=== PATIENT | female | born 2000 | race Caucasian/White ===

== ENCOUNTER 2021-03-20 17:55 | Emergency (ER) | payer OTHER, SELFPAY ==
[2021-03-20] VITALS (7 sets, daily range): BP systolic 112–125; BP diastolic 63–77; PULSE 76–90; RESP 16; TEMP 36.9; O2SAT 98–100; BMI 18.0
--- NOTE | 2021-03-20 18:02 | ED.FALL ---
HPI - Fall General Chief Complaint: Dizziness Stated Complaint: vertigo, fall Time Seen by Provider: 03/20/21 17:57 Source: patient and EMS Mode of arrival: EMS Limitations: no limitations History of Present Illness HPI Narrative: 20-year-old female nonsmoker with history of vertigo presents by EMS and a chief complaint a sudden onset, seemingly unprovoked episode of vertigo which caused her to fall to the ground suffering a head and neck injury. She states that she does not have full recall and may have lost consciousness briefly. She quickly returned to her normal, has no blurred vision, ongoing dizziness, vomiting use of alcohol or blood thinners. She states that she had been in her normal state of health leading up to this and denies any obvious provocation such as change in position, standing up, recent vomiting, diarrhea, heavy menses, new medications or other. She denies any chest pain or shortness of breath nor any palpitations. She denies any history of blood clot, recent travel. She has had no fever or chills. She has left-sided head pain with palpation and pain to palpation of her cervical spine. MD complaint: fall Onset (ago): minute(s) Fall from: standing Fall witnessed: yes, by bystander Place fall occurred: work Loss of consciousness: unsure Length of LOC: second(s) Prolonged down time: no Symptoms prior to fall: dizziness Location of injury: head and neck Severity: moderate Associated symptoms (after fall): denies and neck pain Related Data Previous Rx's Medication Instructions Recorded meclizine 25 mg PO BID-TID PRN #14 tab 03/20/21 ondansetron 4 mg PO TID-QID PRN #10 tab 03/20/21 Allergies Allergy/AdvReac Type Severity Reaction Status Date / Time hydroxyzine Allergy Verified 03/20/21 21:23 Review of Systems Constitutional Constitutional: Denies chills, Denies fatigue, Denies fever(s), Denies frequent falls, Reports headache(s), Denies lethargy and Denies weakness Eyes Eyes: Denies change in vision, Denies eye discharge, Denies irritation and Denies loss of vision ENT Ears, Nose, Mouth, and Throat: Denies change in voice, Reports dizziness, Reports headache(s), Reports neck pain, Denies sore throat and Denies throat swelling Cardiovascular Cardiovascular: Denies chest pain, Denies irregular heart rhythm, Denies lightheadedness, Denies palpitations, Denies dyspnea, Denies dyspnea on exertion and Denies orthopnea Respiratory Respiratory: Denies cough, Denies dyspnea, Denies dyspnea on exertion and Denies wheezing Gastrointestinal Gastrointestinal: Denies abdominal pain, Denies change in bowel habits, Denies diarrhea, Denies nausea and Denies vomiting Musculoskeletal Musculoskeletal: Reports neck pain and Denies numbness Integumentary/Breasts Skin/Breast: Denies pruritus, Denies erythema, Denies rash and Denies wounds Neurologic Neurologic: Denies behavioral changes, Denies confusion, Reports dizziness, Denies frequent falls, Reports headache(s), Denies loss of vision, Denies numbness and Denies weakness Psychiatric Psychiatric: Denies anxiety, Denies behavioral changes, Denies confusion, Denies depression, Denies homicidal ideation and Denies suicidal ideation Endocrine Endocrine: Denies fatigue, Denies flushing and Denies palpitations Hematologic/Lymphatic Hematologic/Lymphatic: Denies easy bruising Allergic/Immunologic Allergic/Immunologic: Denies urticaria, Denies throat swelling and Denies wheezing Patient History Social History Smoking Status: Never smoker Smoking Status: Never smoker alcohol intake frequency: 0-2 drinks per day Substance Use Type: does not use Exam Narrative Exam Narrative: GENERAL: [20] year old patient appears stated age. Well-nourished, well-developed patient, in mild distress. GCS 15 HEAD: Mild tenderness to palpation on the left protestant, no significant swelling laceration or suggestion of depressed skull fracture EYES: Pupils equal round and reactive. Extraocular motions intact. No scleral icterus. No injection or drainage. ENT: Nose without bleeding, purulent drainage. Throat without erythema, tonsillar hypertrophy or exudate. Airway patent. NECK: Trachea midline. Tender in the midline lower cervical, no step-off CARDIOVASCULAR: Regular rate and rhythm without murmurs, gallops, or rubs. RESPIRATORY: Clear to auscultation. Breath sounds equal bilaterally. No wheezes, rales, or rhonchi. GASTROINTESTINAL: Abdomen soft, non-tender, nondistended. EXTREMITIES: No edema or joint tenderness. BACK: Nontender without deformity or crepitance. No flank tenderness. NEURO: AOx3. SKIN: No rash or erythema of visible areas Initial Vital Signs Initial Vital Signs: Vital Signs Pulse Rate 90 03/20/21 18:00 Blood Pressure 119/77 03/20/21 18:00 Pulse Oximetry 100 03/20/21 18:00 Course Orders Ordered: ED Orders 03/20/21 18:02 CT cervical spine wo con Stat CT head/brain wo con Stat 03/20/21 18:03 Complete Blood Count AUTO DIFF Stat EKG-12 Lead Stat 03/20/21 19:03 Comprehensive Metabolic Panel Stat D Dimer Stat Discontinued Medications Sodium Chloride (Normal Saline 0.9%) 1,000 mls @ 1,000 mls/hr IV BOLUS ONE Stop: 03/20/21 19:54 Last Infusion: 03/20/21 20:12 Dose: 0 mls/hr Documented by: Admin: 03/20/21 19:03 Dose: 1,000 mls/hr Documented by: PARISH Sodium Chloride (Normal Saline 0.9%) 1,000 mls @ 1,000 mls/hr IV BOLUS ONE Stop: 03/20/21 21:27 Last Infusion: 03/20/21 21:26 Dose: 0 mls/hr Documented by: Admin: 03/20/21 20:36 Dose: 1,000 mls/hr Documented by: MARTINEZ Meclizine HCl (Meclizine Hcl 12.5 Mg Tablet) 25 mg PO NOW ONE Stop: 03/20/21 18:57 Last Admin: 03/20/21 19:03 Dose: 25 mg Documented by: PARISH Ondansetron HCl (Ondansetron 4 Mg/2 Ml Inj) 4 mg IV NOW ONE Stop: 03/20/21 21:21 Last Admin: 03/20/21 21:26 Dose: 4 mg Documented by: MARTINEZ Vital Signs Vital signs: Vital Signs - 8 hr 03/20/21 18:00 03/20/21 18:02 03/20/21 19:00 Temperature 98.4 F Pulse Rate 90 88 Pulse Rate [Orthostatic Lying] Pulse Rate [Orthostatic Sitting] Pulse Rate [Orthostatic Standing] Respiratory Rate 16 Blood Pressure 119/77 119/77 112/63 Blood Pressure [Orthostatic Lying] Blood Pressure [Orthostatic Sitting] Blood Pressure [Orthostatic Standing] Pulse Oximetry 100 98 03/20/21 19:30 03/20/21 19:45 03/20/21 19:48 Temperature Pulse Rate 78 Pulse Rate [Orthostatic Lying] 78 Pulse Rate [Orthostatic Sitting] 81 Pulse Rate [Orthostatic Standing] 76 Respiratory Rate Blood Pressure 120/75 125/75 Blood Pressure [Orthostatic Lying] 120/75 Blood Pressure [Orthostatic Sitting] 125/75 Blood Pressure [Orthostatic Standing] 116/74 Pulse Oximetry 100 03/20/21 20:53 Temperature Pulse Rate 87 Pulse Rate [Orthostatic Lying] Pulse Rate [Orthostatic Sitting] Pulse Rate [Orthostatic Standing] Respiratory Rate 16 Blood Pressure 121/66 Blood Pressure [Orthostatic Lying] Blood Pressure [Orthostatic Sitting] Blood Pressure [Orthostatic Standing] Pulse Oximetry 100 MDM - Fall Lab Data Result diagrams: 03/20/21 18:03 03/20/21 19:03 Labs: Lab Results 03/20/21 03/20/21 03/20/21 Range/Units 18:03 19:03 19:03 WBC 6.8 (4.5-11.0) X10^3/uL RBC 4.36 (4.0-5.2) X10^6/uL Hgb 12.9 (12.0-16.0) g/dL Hct 38.9 (36-46) % MCV 89.3 (80-100) fL MCH 29.7 (26-34) PG MCHC 33.2 (30-36) % RDW 13.2 (11.6-14.8) % Plt Count 248 (150-400) X10^3/uL Neut % (Auto) 56.2 (50-75) % Lymph % (Auto) 33.9 (25-40) % [place] % (Auto) 7.6 (3-14) % Eos % (Auto) 1.7 L (2-4) % Baso % (Auto) 0.6 (0-2) % Neut # (Auto) 3800 (1031-3360) /uL Lymph # (Auto) 2300 (5465-0280) /uL [place] # (Auto) 500 (0-900) /uL Eos # (Auto) 100 (0-450) /uL Baso # (Auto) 0 (0-100) /uL D-Dimer < 200 (<230) ng/mL Sodium 138 (137-145) mmol/L Potassium 4.1 (3.4-5.1) mmol/L Chloride 108 H (98-107) mmol/L Carbon Dioxide 23 (22-32) mmol/L BUN 12 (7-17) mg/dL Creatinine 0.70 (0.52-1.04) mg/dL Estimated GFR > 60.0 (>60) mL/min BUN/Creatinine Ratio 17.1 (6-22) Glucose 92 (70-100) mg/dL Calcium 9.1 (8.4-10.2) mg/dL Total Bilirubin 0.2 (0.2-1.3) mg/dL AST 24 (14-36) IU/L ALT 16 (<35) IU/L Alkaline Phosphatase 45 (38-126) U/L Total Protein 6.8 (6.3-8.2) g/dL Albumin 4.0 (3.5-5.0) g/dL Globulin 2.8 (1.7-4.1) g/dL Albumin/Globulin Ratio 1.4 (1.0-2.8) Point of Care Testing Test Results Negative Urine Dip Bedside Urine Glucose Negative Bedside Urine Bilirubin - Negative Bedside Urine Ketone - Negative Urine Specific [place] 1.020 Bedside Urine Occult Blood - Negative Bedside Urine pH 6 Bedside Urine Protein - Negative Bedside Urine Urobilinogen - Negative Bedside Urine Nitrite - Negative Bedside Urine Leukocytes - Negative Esterase Imaging Data CT scan - head: Radiologist's Impression: [address] [id number] Scan ReportSigned Patient: Inderjit Mcclelland#: [id number]: 2000Acct:[id number]/Sex: 20 / FDate of Service: 03/20/21Loc: EDAccession Number: [id number] Procedure: CT head/brain wo con Ordering Provider: Brendon Guardado D.O. PROCEDURE: CT HEAD/BRAIN WO CON INDICATIONS: fall with head injury, possible syncope TECHNIQUE: Noncontrast 4.5 mm thick angled axial sections acquired from the foramen magnum to the vertex, with coronal and sagittal reformats. For radiation dose reduction, the following was used: automated exposure control, adjustment of mA and/or kV according to patient size. COMPARISON: None. FINDINGS: Image quality: Excellent. CSF spaces: Basal cisterns are patent. No extra-axial fluid collections. Ventricles are normal in size and shape. Brain: No midline shift. No intracranial masses or hemorrhage. Mrcae-white matter interface is normal. Skull and face: Calvarium and visualized facial bones are intact, without suspicious lesions. Sinuses: Visualized sinuses and mastoids are clear. IMPRESSION: CT head without acute intracranial abnormalities. No mass or mass effect visualized. No acute calvarial fractures. Dictated by: Melchor Perdomo M.D. on 03/20/2021 at 18:39 Approved by: Melchor Perdomo M.D. on 03/20/2021 at 18:42 CT - cervical spine: Radiologist's Impression: [address] [id number] Scan ReportSigned Patient: Inderjit Mcclelland#: [id number]: 2000Acct:[id number]/Sex: 20 / FDate of Service: 03/20/21Loc: EDAccession Number: [id number] Procedure: CT cervical spine wo con Ordering Provider: Brendon Guardado D.O. PROCEDURE: CT CERVICAL SPINE WO CON INDICATIONS: fall with neck pain TECHNIQUE: Noncontrast 3 mm thick sections acquired from the skull base to the T4 level. Sagittal and coronal reformats were then constructed. For radiation dose reduction, the following was used: automated exposure control, adjustment of mA and/or kV according to patient size. COMPARISON: None. FINDINGS: Image quality: Excellent. Bones: No fractures or dislocations. Visualized superior ribs are intact. Soft tissues: Prevertebral soft tissues are normal in thickness. No paravertebral hematomas. No apical pneumothoraces. IMPRESSION: No visualized fracture Dictated by: Annabel Suárez M.D. on 03/20/2021 at 17:40 Approved by: Annabel Suárez M.D. on 03/20/2021 at 17:43 ECG Data Interpretation: EKG is normal sinus rhythm rate [81] and free of any signs of ischemia or ectopy. No ST segmental elevation or depression. No T wave inversions MDM Narrative Medical decision making narrative: Multiple etiologies for patient's symptoms considered including: [Dehydration versus arrhythmia versus vertigo versus orthostasis vs. PE vs. other. ] Patient's symptoms improved over duration of stay with above-stated therapies. No longer dizzy after fluids and meds. Labs, imaging, and exam are very reassuring. Findings and discharge diagnosis discussed with patient/family followed by verbalization of understanding Return precautions discussed with patient/family whom verbalize understanding. Discharge Plan Departure Patient Disposition: Home Clinical Impression: Vertigo, Near syncope Instructions: DI for Vertigo Activity Restrictions/Additional Instructions: *You have been diagnosed with [dizziness and near syncope] *What to do: *Take medications as directed *Follow up with your primary care provider in 2-3 days, call for an appointment. Let them know you were seen in the Emergency Department and that we ask that you be seen in follow up *Return to ER if you should have any new, worsening or concerning symptoms Prescriptions: New ondansetron 4 mg tablet,disintegrating 4 mg PO TID-QID PRN (Reason: nausea and vomiting) Qty: 10 RF: 0 meclizine 25 mg tablet 25 mg PO BID-TID PRN (Reason: dizziness) Qty: 14 RF: 0 Referrals: Farida Lange ARNP [Primary Care Provider] - Stand Alone Forms: Work Release Note
--- NOTE | 2021-03-20 18:09 | PC.NURSE ---
patient reports she turned to talk to a coworker, when done talking she turned back around and the room started spinning. She reports she then fell. She states she is unsure if she lost consciousness. She reports she remembers the first words she heard after falling was her eyes were closed for a while. reports left side head pain. Cleared from backboard upon arrival by ALIYAH.
[2021-03-20 18:43] LABS: Add Manual Diff / Slide Review NO; Basophils Absolute Auto 0 /uL (0-100); Basophils Percent Auto 0.6 % (0-2); Eosinophils Absolute Auto 100 /uL (0-450); Eosinophils Percent Auto 1.7 % (2-4); Hematocrit 38.9 % (36-46); Hemoglobin 12.9 g/dL (12.0-16.0); Lymphocytes Absolute Auto 2300 /uL (1100-4500); Lymphocytes Percent Auto 33.9 % (25-40); Mean Corpuscular HGB Conc 33.2 % (30-36); Mean Corpuscular Hemoglobin 29.7 PG (26-34); Mean Corpuscular Volume 89.3 fL (80-100); Monocytes Absolute Auto 500 /uL (0-900); Monocytes Percent Auto 7.6 % (3-14); Neutrophils Absolute Auto 3800 /uL (1500-7000); Neutrophils Percent Auto 56.2 % (50-75); Platelet Count 248 X10^3/uL (150-400); Red Blood Cell Count 4.36 X10^6/uL (4.0-5.2); Red Cell Distribution Width 13.2 % (11.6-14.8); White Blood Cell Count 6.8 X10^3/uL (4.5-11.0)
[2021-03-20] MEDS: SODIUM CHLORIDE 0.9% 1,000 ML 1000 ML IV ×2 (19:03→20:36)
[2021-03-20] MEDS: MECLIZINE HCL 12.5 MG TABLET 25 MG PO (19:03)
[2021-03-20 19:21] LABS: Alanine Aminotransferase 16 IU/L (<35); Albumin Globulin Ratio 1.4 (1.0-2.8); Alkaline Phosphatase 45 U/L (38-126); Aspartate Aminotransferase 24 IU/L (14-36); BUN Creatinine Ratio 17.1 (6-22); Bilirubin Total 0.2 mg/dL (0.2-1.3); Blood Urea Nitrogen 12 mg/dL (7-17); Calcium 9.1 mg/dL (8.4-10.2); Carbon Dioxide 23 mmol/L (22-32); Chloride 108 mmol/L (98-107); Estimated Glomerular Filt Rate > 60.0 mL/min (>60); Globulin 2.8 g/dL (1.7-4.1); Glucose 92 mg/dL (70-100); HEMOLYSIS < 15 (0-50); Potassium 4.1 mmol/L (3.4-5.1); Sodium 138 mmol/L (137-145); Total Protein 6.8 g/dL (6.3-8.2)
[2021-03-20 19:28] LABS: D Dimer < 200 ng/mL (<230)
[2021-03-20] MEDS: ONDANSETRON 4 MG/2 ML INJ IV (21:26)
== END 2021-03-20 21:40 | disposition home or self-care (01) ==
PROVIDERS: Emergency Provider Emergency Medicine; PCP Nurse Practitioner
DX: R42 Dizziness and giddiness (principal); R51.9 Headache, unspecified; M54.2 Cervicalgia; S09.90XA Unspecified injury of head, initial encounter; W19.XXXA Unspecified fall, initial encounter; Y99.0 Civilian activity done for income or pay
CPT/HCPCS: 36415; 70450; 72125; 80053; 81003; 81025; 85025; 85379; 93005; 96361; 96374; 99284; J2405